=== PATIENT | female | born 1985 | race Caucasian/White ===

== ENCOUNTER 2024-01-22 08:54 | Emergency (ER) | payer OTHER, SELFPAY ==
[2024-01-22 08:57] VITALS: BP 155/88; PULSE 80; RESP 20; TEMP 36.6; O2SAT 97; BMI 43.9
--- NOTE | 2024-01-22 09:14 | ED.GENADULT ---
HPI - General Adult General Chief complaint: Back Injury/Pain Stated complaint: low back pain Time Seen by Provider: 01/22/24 09:05 History of Present Illness HPI narrative: This 38-year-old female comes in reporting bilateral low back pain without midline tenderness. She does not report any injury event or strenuous activity. 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 She has been taking this with Tylenol and ibuprofen with some initial relief but now reports persistent discomfort the does not radiate down either leg. She also has some nausea symptoms at times. She states that she measured a temperature yesterday at 100.9? F. She arrives here with normal vital signs. She does not describe any abdominal pain or dysuria symptoms. Related Data Home Medications ?Medication ?Instructions ?Recorded ?Confirmed amlodipine 10 mg tablet 10 mg PO DAILY 01/22/24 01/22/24 bupropion HCl 300 mg 24 hr tablet, 300 mg PO DAILY 01/22/24 01/22/24 extended release chlorthalidone 25 mg tablet 12.5 mg PO DAILY 01/22/24 01/22/24 cyclobenzaprine 5 mg tablet 5 - 10 mg PO 3XD PRN 01/22/24 01/22/24 fluoxetine 20 mg capsule 20 mg PO DAILY 01/22/24 01/22/24 hydroxyzine pamoate 50 mg capsule 50 mg PO 3XD PRN anxiety 01/22/24 01/22/24 labetalol 300 mg tablet 300 mg PO BID 01/22/24 01/22/24 losartan 100 mg tablet 100 mg DAILY 01/22/24 metformin 500 mg tablet,extended 1,000 mg PO BID 01/22/24 01/22/24 release 24 hr venlafaxine 75 mg capsule,extended 75 mg PO DAILY 01/22/24 01/22/24 release 24 hr Previous Rx's ?Medication ?Instructions ?Recorded ketorolac 10 mg tablet 10 mg PO Q8H 5 days #15 tabs 01/22/24 methylprednisolone 4 mg tablets in See Rx Instructions PO .COMPLEX 01/22/24 a dose pack (Medrol (Rahat)) #21 ea Allergies Allergy/AdvReac Type Severity Reaction Status Date / Time morphine Allergy Intermediate Hives Verified 01/22/24 09:00 lisinopril AdvReac Mild Cough Verified 01/22/24 09:00 Review of Systems Status of ROS: Reports: 10 or more systems reviewed and unremarkable except as noted in History and below Narrative: Constitutional: No fevers, no weight gain or loss. Eyes: No discharge. No vision changes. HENT: No congestion, no sore throat, no ear pain. Cardiovascular: No chest pain, no palpitations. Respiratory: No shortness of breath, no wheezes, no cough. Gastrointestinal: No abdominal pain, no vomiting, no diarrhea. Genitourinary: No dysuria, no hematuria. Musculoskeletal: Normal range of motion. Low back pain as described above. Skin: No rashes, no pruritis. Neurological: No dizziness, weakness, sensory change, speech change. Endo/Heme/Allergies: No bruising or bleeding. No polydipsia. Pysch: no suicidality, no anxiety, no insomnia. All other systems reviewed and are negative. [facility] Medical History (Updated 01/22/24 @ 10:50 by Bo Warren MD) Ectopic without intrauterine ?O00.90 - Unspecified ectopic without intrauterine (ICD-10) Surgical History (Updated 09/12/23 @ 15:50 by Marni Hardin) History of cholecystectomy (2011) ?Z90.49 - Acquired absence of other specified parts of digestive tract (ICD-10) History of exploratory laparotomy (03/2015) ?Z98.890 - Other specified postprocedural states (ICD-10) Family History (Updated 09/12/23 @ 15:53 by Marni Hardin) Father High cholesterol High blood pressure Depression Alcohol dependence Mother High cholesterol High blood pressure Depression Paternal Grandmother Breast cancer Exam Narrative: Exam Narrative: Constitutional: Well-developed, well-nourished, no acute distress. HEENT: Normocephalic, atraumatic. Neck: Normal range of motion. Nontender. Supple. Heart: Regular. No murmurs. Normal rate. Intact distal pulses. Lungs: Clear to auscultation. No chest discomfort. No wheezes, rhonchi, or rales. Abdomen: Normal bowel sounds. Nontender. No rebound tenderness. Genitalia: Deferred. Back: No midline tenderness. Normal range of motion. No pain radiating down either leg. Extremities: Normal range of motion. No injury. Skin: Intact. No rash. Warm. No erythema or pallor. Neurologic: No altered sensation. No weakness. Alert and oriented. Psychiatric: No suicidality. No anxiety or depression. No insomnia. Nursing notes and vitals signs are reviewed. Const: Vital Signs, click to edit/add: Vital Signs - 24 hr 01/22/24 08:57 Temperature 98 F Pulse Rate [Pulse Oximeter] 80 Respiratory Rate 20 Blood Pressure [Ri ght Upper Arm] 155/88 H Pulse Oximetry 97 Oxygen Delivery Me thod Room Air Course Vital Signs Vital signs: Initial Vital Signs Temperature 98 F 01/22/24 08:57 Temperature Source Oral 01/22/24 08:57 Pulse Rate 80 01/22/24 08:57 Pulse Rhythm Regular 01/22/24 08:57 Respiratory Rate 20 01/22/24 08:57 Blood Pressure 155/88 H 01/22/24 08:57 Blood Pressure Mean 110 H 01/22/24 08:57 Blood Pressure Position Sitting 01/22/24 08:57 Pulse Oximetry 97 01/22/24 08:57 Oxygen Delivery Method Room Air 01/22/24 08:57 Vital Signs Temperature 98 F 01/22/24 08:57 Pulse Rate 80 01/22/24 08:57 Respiratory Rate 20 01/22/24 08:57 Blood Pressure 155/88 H 01/22/24 08:57 Pulse Oximetry 97 01/22/24 08:57 Oxygen Delivery Method Room Air 01/22/24 08:57 Temperature 98 F 01/22/24 08:57 Pulse Rate 80 01/22/24 08:57 Respiratory Rate 20 01/22/24 08:57 Blood Pressure 155/88 H 01/22/24 08:57 Pulse Oximetry 97 01/22/24 08:57 Oxygen Delivery Method Room Air 01/22/24 08:57 Medical Decision Making MDM Narrative Medical decision making narrative: This patient reports some low back pain that appears to be muscular in nature. She does not report any particular injury event or strenuous activity. The pain does not radiate down her leg. A urinalysis is obtained and shows no sign of infection however there is 2+ protein present. I advised her to follow-up with her primary doctor to recheck this in the future. Blood is also obtained and her kidney function is normal as is her white count. These are reassuring findings. Most likely this is a muscle strain causing her symptoms. She did received prescription for Toradol and Medrol Dosepak. Lab Data Labs: Lab Results 01/22/24 01/22/24 Range/Units 09:15 10:10 WBC 10.85 (4.50-11.00) K/uL RBC 4.69 (4.00-5.20) m/uL Hgb 14.6 (12.0-16.0) gm/dL Hct 41.7 (33.0-51.0) % MCV 89 (80-100) fL MCH 31 (26-34) pg MCHC 35 (32-36) gm/dL RDW Coeff of Aneudy 12.6 (11.5-15.5) % Plt Count 280 (140-440) K/uL Neut % (Auto) 76.2 H (42.0-72.0) % Lymph % (Auto) 16.0 L (20-44) % [place] % (Auto) 5.4 (0.0-11.0) % Eos % (Auto) 1.8 (0.0-7.0) % Baso % (Auto) 0.4 (0.0-3.0) % Neut # (Auto) 8.30 H (1.7-7.0) K/uL Lymph # (Auto) 1.70 (0.90-2.90) K/uL [place] # (Auto) 0.60 (0.00-0.90) K/UL Eos # (Auto) 0.20 (0.00-0.50) K/uL Baso # (Auto) 0.04 (0.00-0.30) K/uL Abs Immat Gran (auto) 0.02 (0.00-0.30) K/uL Imm/Tot Granulo (auto) 0.2 % Sodium 139 (135-149) mmol/L Potassium 3.3 L (3.6-5.1) mmol/L Chloride 102 (96-114) mmol/L Carbon Dioxide 27 (20-32) mmol/L Anion Gap 10 (7-15) mEq/L BUN 11 (5-24) mg/dL Creatinine 0.7 (0.5-1.5) mg/dL Estimated Creat Clear 118.99 Estimated GFR 114 ml/min Glucose 120 H (60-115) mg/dL Calcium 9.5 (8.4-10.6) mg/dL Urine Color Yellow (Yellow) Urine Appearance Clear (Clear) Urine pH 7.5 (5.0-8.5) Ur Specific [place] 1.025 (1.000-1.030) Urine Protein 2+ A (Negative) Urine Glucose (UA) Negative (Negative) Urine Ketones Trace A (Negative) Urine Blood Trace-intact A (Negative) Urine Nitrite Negative (Negative) Urine Bilirubin Negative (Negative) Urine Urobilinogen 0.2 (0.2-1.0) Ur Leukocyte Esterase Negative (Negative) Urine RBC 2-5 A (0-2) Urine WBC 0-2 (0-5) Ur Squamous Epith Cells Moderate A (None-Few) Urine Bacteria Moderate A (None) Discharge Plan Discharge Clinical Impression: Low back pain Patient Disposition: Home, Self-Care Condition: Stable Additional Instructions: Take medication as prescribed and needed. Activity as tolerated. Gentle stretching and strengthening is encouraged as tolerated also. Follow up with MD or return if worsening. Prescriptions: New ketorolac 10 mg tablet 10 mg PO Q8H 5 Days Qty: 15 0RF methylprednisolone [Medrol (Rahat)] 4 mg tablets,dose pack See Rx Instructions .ROUTE .COMPLEX Qty: 21 0RF Rx Instructions: orally per package directions No Action venlafaxine 75 mg capsule,extended release 24hr 75 mg PO DAILY hydroxyzine pamoate 50 mg capsule 50 mg PO 3XD PRN (Reason: anxiety) chlorthalidone 25 mg tablet 12.5 mg PO DAILY amlodipine 10 mg tablet 10 mg PO DAILY labetalol 300 mg tablet 300 mg PO BID losartan 100 mg tablet 100 mg DAILY fluoxetine 20 mg capsule 20 mg PO DAILY metformin 500 mg tablet extended release 24 hr 1,000 mg PO BID cyclobenzaprine 5 mg tablet 5 - 10 mg PO 3XD PRN bupropion HCl 300 mg tablet extended release 24 hr 300 mg PO DAILY Follow Up/Referrals: Provider,Not a Local [Primary Care Provider] - Stand Alone Forms: [employer] Info Instructions
[2024-01-22 09:25] LABS: Appearance Urine Clear (Clear); Bilirubin Urine Negative (Negative); Blood Urine Trace-intact (Negative); Color Urine Yellow (Yellow); Glucose Urine Negative (Negative); Ketones Urine Trace (Negative); Leukocyte Esterase Urine Negative (Negative); Nitrite Urine Negative (Negative); Protein Urine 2+ (Negative); Specific Gravity Urine 1.025 (1.000-1.030); Urobilinogen Urine 0.2 (0.2-1.0); pH Urine 7.5 (5.0-8.5)
--- OUTSIDE RECORDS SUMMARY | 2024-01-22 09:28 | XMS_ITS | Clinical Summary ---
Author Organization [employer] [facility] Address [place], [place] [address] Care Team Providers Care Master Machinist Name Role Phone Clinic, [facility] Primary Care Provider [phone] Allergies Active Allergy Reactions Criticality Noted Date Comments Morphine Hives,Nausea And Vomiting 12/17/2009 Medications Medication Sig Dispensed Refills Start Date End Date Status Omeprazole 20 mg tablet Take 1 tablet by mouth once daily. 90 tablet 4 12/22/2011 Active INTRAUTERINE DEVICE (IUD) 1 Device. 1 Device 0 12/22/2011 Active omega-3 fatty acids-vitamin E (FISH OIL) 1,000 mg Cap Take by mouth. 0 12/29/2011 Active niacin SR (NIASPAN) 500 mg tablet Take 3 tablets by mouth at bedtime. 90 tablet 1 12/29/2011 Active methyldopa (ALDOMET) 500 mg tablet Take 1 tablet by mouth 2 times daily. 180 tablet 1 08/10/2012 Active atomoxetine (STRATTERA) 40 mg capsule Take 1 capsule by mouth once daily. 90 capsule 1 08/10/2012 Active Active Problems Problem Noted Date Diagnosed Date Migraines 08/20/2010 Hypertriglyceridemia 01/07/2010 ADHD (attention deficit hyperactivity disorder) 01/05/2010 Hypertension 01/05/2010 GERD (gastroesophageal reflux disease) Immunizations Name Administration Dates Next Due Influenza, High-dose Inactivated 04/26/2014 Influenza, IIV3 (Age >=3 years) 06/05/2012,04/22 Influenza, IIV4 05/01/2015 Tdap 01/13/2009 Family History Medical History Relation Name Comments Alcohol/Drug Father alcoholism Hyperlipidemia Father dyslipidemia Hypertension Father Psychiatric illness Father bipolar, depression Heart Disease Maternal Grandfather heart attack, in his 60's Hyperlipidemia Mother dyslipidemia Hypertension Mother Psychiatric illness Mother depressi on Alcohol/Drug Paternal Grandfather alcohol ic Heart Disease Paternal Grandfather heart attack, in his 50's Cancer-breast Paternal Grandmother 50s Hyperlipidemia Paternal Grandmother Hypertension Paternal Grandmother Alcohol/Drug Paternal Uncle couple of [facility] were alcoholics Psychiatric illness Sister depressi on, anxiety Relation Name Status Comments Father Maternal Grandfather Mother Paternal Grandfather Paternal Grandmother Paternal Uncle Sister Social History Tobacco Use Types Packs/Day Years Used Date Smoking Tobacco: Every Day Cigarettes Smokeless Tobacco: Never Tobacco Cessation:Ready to Q uit: No; Counseling Given: No Alcohol Use Standard Drinks/Week Comments Yes 0 (1 standard drink = 0.6 oz pur e alcohol) Rare/ocasional Sex and Gender Information Value Date Recorded Sex Assigned at Not on file Gender Identity Not on file Sexual Orientation Not on file Obstetrics History Para Term AB IAB SAB Ectopic Multiple Livin g Live Births 0 0 0 0 0 0 0 0 0 0 Last Filed Vital Signs Vital Sign Reading Time Taken Comments Blood Pressure 137/96 10/22/2013 9:09 PM CDT Pulse 95 10/22/2013 9:09 PM CDT Temperature 36.2 ??C (97.2 ??F) 10/22/2013 7:13 PM CD T Respiratory Rate 18 10/22/2013 9:09 PM CDT Oxygen Saturation 95% 10/22/2013 9:09 PM CDT Inhaled Oxygen Concentration - - Weight 122.9 kg (271 lb) 08/10/2012 1:40 PM [employer] Height 179.7 cm (5' 10.75) 07/03/2012 11:39 AM [employer] Body Mass Index 38.06 07/03/2012 11:39 AM [employer] Plan of Treatment Health Maintenance Due Date Last Done Comments Depression screening for age 12+ 1998 HIV for age 15-65 2001 BMI (ht and wt on same day) for age 18+ 2004 Hepatitis C screening for age 18-79 2004 Tetanus booster 01/13/2019 01/13/2009 Pap test for age 21-65 02/14/2021 8, 02/14/2018, 12/22/2011 (Completed outside of [facility]), Additional history exists COVID-19 vaccine series (2022-24 season) 2023 Influenza for age 9-49 02/25/2024 5, 06/05/2012, 04/22/2011 Tdap Completed 01/13/2009 Pneumococcal series for age 6-64 Aged Out No longer eligible based on patient's age to complete this topic Procedures Procedure Name Priority Date/Time Associated Diagnosis Comments RN INTERNAL MEDICINE THIN PREP PAP SCREEN IMAGED Routine 02/14/2018 1:25 PM CDT from Last 3 Months or Most Recently Relevant to Health Maintenance Results * RN INTERNAL MEDICINE THIN PREP PAP SCREEN IMAGED (02/14/2018 1:25 PM CDT) Case Report Gynecologic Cytology Report ? Case: [id number] ? Authorizing Provider: ??Faiza Zavaleta ?Collected: ? 02/14/2018 1325 ? MD Caroline ? First Screen: ?Carmen Reyna ?Received: ?02/16/2018 1325 ? Specimen: ?RN INTERNAL MEDICINE ThinPrep Vial Screening, Cervical/Vaginal ? 02/28/2018 10:14 AM CDT [facility]AL [facility] INTERPRETATION/ RESULT NEGATIVE FOR INTRAEPITHELIAL LESION OR MALIGNANCY (NIL) (none) 02/28/2018 10:14 AM CDT [facility] IMEN ADEQUACY Satisfactory for evaluation No endocervical component seen 02/28/2018 10:14 AM CDT [facility] HPV REQUEST HPV and PAP 02/28/2018 10:14 AM CDT [facility] Date of LMP 02/11/2018 02/28/2018 10:14 AM CDT [facility] Automated Review Successful 02/28/2018 10:14 AM CDT [facility] Comment:Specimen processed s uccessfully by automated casino attendant device, ThinPrep Imaging System, [employer] ANCILLARY TESTING RN INTERNAL MEDICINE HPV Ordered, Please see separate report 02/28/2018 10:14 AM CDT [facility] Note The pap test is a screening technique, not a diagnostic procedure. ??It is used primarily to screen for squamous cancers and precursor lesions. ??Published studies have shown that it is subject to both false negative and false positive results. ??The pap test should not be used as the sole means to diagnose or exclude pre-malignant and malignant lesions. Cytology is screened and interpreted at [facility] - [address], [place] [address] and [facility] - [address]; [place] [address] and [facility] - [address]; [place] [address] and [facility] [address]; [place] [address] 02/28/2018 10:14 AM CDT [facility] Other (Cervical/Vagina l) 02/14/2018 1:25 PM CDT 02/16/2018 1:25 PM CDT Faiza Zavaltea MD PATHOLOGY/ CYTOLOGY [facility] [address] [place] [address], [place] from Last 3 Months or Most Recently Relevant to Health Maintenance Care Teams Master Machinist Relationship Specialty Start Date End Date [facility], [address] [id number] PCP - General 10/22/13
--- OUTSIDE RECORDS SUMMARY | 2024-01-22 09:29 | XMS_ITS | Clinical Summary ---
Author Organization [facility] Address [address] [place] [address] Care Team Providers Care Farmworker [employer] Name Role Phone Louie Meadows MD Primary Care Provider [phone] [phone] [facility], [facility] Unavailable [phone] [phone] Allergies Active Allergy Reactions Criticality Noted Date Comments Lisinopril Cough 07/12/2013 Morphine Nausea and Vomiting,Itching 10/12/19 05 Medications Medication Sig Dispensed Refills Start Date End Date Status Magnesium Glycinate 665 MG CAPS Take 500 mg by mouth daily 12/24/2021 Active omeprazole (PRILOSEC) [address] capsule Take 1 capsule (20 mg) by mouth daily 12/24/2021 Active Cholecalciferol-Shayy min C (VITAMIN D3-VITAMIN C) 1000-500 UNIT-MG CAPS Take 2 capsules by mouth daily 12/24/2021 Active rizatriptan (MAXALT) 5 MG tabletIndications:Mi graine with aura and without status migrainosus, not intractable Take 1 tablet (5 mg) by mouth at onset of headache for migraine May repeat in 2 hours. Max 6 tablets/24 hours. 6 tablet 1 12/24/2021 Active doxycycline hyclate (VIBRA-TABS) 100 MG tablet Take 1 tablet by mouth 2 times daily 07/19/2022 Active chlorthalidone (HYGROTON) 25 MG tabletIndications:Be nign essential hypertension Take 0.5 tablets (12.5 mg) by mouth daily 45 tablet 3 10/31/2022 Active amLODIPine (NORVASC) 10 MG tabletIndications:Be nign essential hypertension Take 1 tablet (10 mg) by mouth daily 90 tablet 1 05/03/2023 Active buPROPion (WELLBUTRIN XL) 300 MG 24 hr tabletIndications:Ge neralized anxiety disorder Take 1 tablet (300 mg) by mouth every morning 90 tablet 1 05/03/2023 Active hydrOXYzine (VISTARIL) 50 MG capsuleIndications:G eneralized anxiety disorder Take 1 capsule (50 mg) by mouth 3 times daily as needed for anxiety 270 capsule 1 05/03/2023 Active labetalol (NORMODYNE) 300 MG tabletIndications:Be nign essential hypertension Take 1 tablet (300 mg) by mouth 2 times daily 180 tablet 1 05/03/2023 Active losartan (COZAAR) 100 MG tabletIndications:Be nign essential hypertension Take 1 tablet (100 mg) by mouth daily 90 tablet 1 05/03/2023 Active metFORMIN (GLUCOPHAGE XR) 500 MG 24 hr tabletIndications:PC OS (polycystic ovarian syndrome) Take 1 tablet (500 mg) by mouth 2 times daily (with meals) 180 tablet 1 05/03/2023 Active venlafaxine (EFFEXOR-ER) 225 MG 24 hr tabletIndications:Ge neralized anxiety disorder Take 1 tablet (225 mg) by mouth daily 90 tablet 1 05/03/2023 Active Active Problems Problem Noted Date Diagnosed Date Mixed hyperlipidemia 01/27/2022 Elevated fasting glucose 01/27/2022 PCOS (polycystic ovarian syndrome) 01/20/2022 Former smoker 12/24/2021 Morbid obesity 12/24/2021 Chronic GERD 12/24/2021 Migraine with aura and witho ut status migrainosus, not intractable 01/07/2015 Generalized anxiety disorder 07/12/2013 ACP (advance care planning) 12/21/2012 Benign essential hypertension 12/21/2012 Recurrent major depressive d isorder, in partial remission (H24) 12/21/2012 Hypercholesterolemia 11/29/2012 Resolved Problems Problem Noted Date Diagnosed Date Resolved Date Health Detention 12/24/2021 12/11/2023 Ectopic 10/23/2013 12/24/2021 CARDIOVASCULAR SCREENING; LD L GOAL LESS THAN 130 07/12/2013 12/24/2021 Obesity 12/21/2012 01/20/2022 Tobacco abuse 12/21/2012 12/24/2021 Sprain of back 03/23/2005 07/12/2013 Overview: Problem list name updated by automated process. Provider to review Acute bronchitis 03/16/2005 07/12/2013 Encounters Date Type Department Care Team Description 11/30/2023 Refill [facility] [address] [phone] Louie Meadows MD Medication Refill 11/01/2023 MyC Medical Advice [facility] [address] [phone] Jolene Grimes CMA Refill Request (Fluoxetine, Venlafaxine/) 10/31/2023 Refill [facility] [address] [place] [phone] Louie Meadows MD Medication Refill from Last 3 Months Immunizations Name Administration Dates Next Due Influenza (IIV3) PF 04/11/2013 Influenza Vaccine >6 months,quad, PF ,05/14/2021,04/29/2020, 019 Nasal Influenza Vaccine 2-49 (FluMist) 05/18/2014 TDAP (Adacel,Boostrix) 02/14/2018,01/13/2009 Family History Medical History Relation Comments Attention Deficit Disorder Brother Depression Brother Other - See Comments Brother motocycle a ccident. Alcoholism Father Arthritis Father Hypertension Father Psychotic Disorder Father Bipolar disor topher Alcoholism Maternal Grandfather Hypertension Maternal Grandmother Anxiety Disorder Mother Depression Mother Hypertension Mother Coronary Artery Disease Paternal Grandfather Alcoholism Paternal Grandmother Breast Cancer Paternal Grandmother Coronary Artery Disease Paternal Grandmother Depression Paternal Grandmother Anxiety Disorder Sister Depression Sister Migraines Sister Polycystic ovary syndrome Sister Relation Status Comments Brother Father Alive Maternal Grandfather Maternal Grandmother Alive Mother Alive Paternal Grandfather Paternal Grandmother Sister Alive Social History Tobacco Use Types Packs/Day Years Used Date Smoking Tobacco: Former Cigarettes 0.5 9 0 12/24/2006 - 12/25/2015 Smokeless Tobacco: Never Comments:less than 1/2 PPD Alcohol Use Standard Drinks/Week Comments Yes 0 (1 standard drink = 0.6 oz pur e alcohol) 1-2 a month PHQ-2 Answer Date Recorded PHQ-2 Score 1 05/03/2023 Adolescent Education Answer Date Record ed Getting School Help Needed Not on file 04/11 Sex and Gender Information Value Date Recorded Sex Assigned at Female 12/24/2021 11:20 AM CDT Gender Identity Female 12/24/2021 11:20 AM CDT Sexual Orientation Straight 12/24/2021 11 :20 AM CDT Last Filed Vital Signs Vital Sign Reading Time Taken Comments Blood Pressure 142/82 05/03/2023 12:29 PM BEADING INSTALLER Pulse 85 05/03/2023 12:29 PM BEADING INSTALLER Temperature 36.7 ??C (98 ??F) 05/03/2023 12:29 PM BEADING INSTALLER Respiratory Rate 20 05/03/2023 12:29 PM BEADING INSTALLER Oxygen Saturation 94% 05/03/2023 12:29 PM BEADING INSTALLER Inhaled Oxygen Concentration - - Weight 136.5 kg (301 lb) 05/03/2023 12:29 PM BEADING INSTALLER Height 180.3 cm (5' 11) 05/13/2022 12:40 PM BEADING INSTALLER Body Mass Index 41.98 05/13/2022 12:40 PM BEADING INSTALLER Plan of Treatment Health Maintenance Due Date Last Done Comments ANNUAL REVIEW OF HM ORDERS 1986 MIGRAINE ACTION PLAN 1986 HIV SCREENING 2001 HEPATITIS C SCREENING 2004 YEARLY PREVENTIVE VISIT 12/20/2015 12/20/19 15, 11/29/2012, 01/12/2005, Additional history exists PAP 02/14/2021 02/14/2018, 01/25, 12/19/2014, Additional history exists LIPID 01/20/2023 01/20/2022, 11/25, 12/07/2012 COVID-19 Vaccine ( season) 2023 06/10/2021, 08/12/2020, 07/15/2020 PHQ-9 11/01/2023 05/03/2023, 04/26, 03/25/2022, Additional history exists ADVANCE CARE PLANNING 01/21/2024 12/21/2012 Postpo radha from 12/21/2017 (Patient Declined) INFLUENZA VACCINE (#1) 2024 , 05/14/2021, 04/29/2020, Additional history exists HEPATITIS B IMMUNIZATION (1 of 3 - 19+ 3-dose series) 06/14/2025 Postponed from 2005 (Other) GLUCOSE 07/22/2025 07/22/2022, 05/27, 03/25/2022, Additional history exists DTAP/TDAP/TD IMMUNIZATION (3 - Td or Tdap) 02/15/2028 02/14/2018, 01/13/2009 DEPRESSION ACTION PLAN Completed 01/20/2022, 2021 HPV IMMUNIZATION Aged Out No longer e ligible based on patient's age to complete this topic IPV IMMUNIZATION Aged Out No longer e ligible based on patient's age to complete this topic MENINGITIS IMMUNIZATION Aged Out No l onger eligible based on patient's age to complete this topic Pneumococcal Vaccine: Pediatrics (0 to 5 Years) and At-Risk Patients (6 to 64 Years) Aged Out No longer eligible based on patient's age to complete this topic RSV MONOCLONAL ANTIBODY Aged Out No l onger eligible based on patient's age to complete this topic Procedures Procedure Name Priority Date/Time Associated Diagnosis Comments BASIC METABOLIC PANEL (BFP) Routine 07/22/2022 Benign essential hypertension LIPID PANEL (BFP) Routine 01/20/2022 Morbid obesity (H) PAP IMAGED THIN LAYER SCREEN Routine 12/19/2014 12:00 AM CDT Routine general medical examination at a health care facility from Last 3 Months or Most Recently Relevant to Health Maintenance Results * Basic Metabolic Panel (BFP) (07/22/2022) Carbon Dioxide 31.0 20 - 32 mmol/L BFP INTERNAL Creatinine 0.98 0.60 - 1.30 mg/dL BFP INTERNAL Glucose 88 60 - 99 mg/dL BFP INTERNAL Sodium 138.3 135 - 146 mmol/L BFP INTERNAL Potassium 5.18 3.5 - 5.3 mmol/L BFP INTERNAL Chloride 98.8 98 - 110 mmol/L BFP INTERNAL Urea Nitrogen 17.0 7 - 25 mg/dL BFP INTERNAL Calcium 10.0 8.6 - 10.3 mg/dL BFP INTERNAL BUN/Creatinine Ratio 17.3 6 - 22 BFP INTERNAL Blood 07/22/2022 Louie Meadows MD LAB - NON-SmartPill BLOOD LABS BFP INTERNAL * (ABNORMAL) Lipid Panel (BFP) (01/20/2022) Cholesterol 210(A) 0 - 199 mg/dL BFP INTERNAL Triglycerides 345(A) 0 - 149 mg/dL BFP INTERNAL HDL Cholesterol 35(A) 40 - 150 mg/dL BFP INTERNAL LDL Cholesterol Direct 106 0 - 130 mg/dL BFP INTERNAL Cholesterol/HDL Ratio 6(A) 0 - 5 BFP INTERNAL Blood 01/20/2022 Ana Lilia Delgado PA-C LAB - NON -Quickflix BLOOD LABS BFP INTERNAL * PAP imaged thin layer, screen (12/19/2014 12:00 AM CDT) PAP MARGIE Joshi Report Patient Name: DANII PRAKASH MR#: [id number] Specimen #: [id number] Collected: 12/19/2014 Received: 12/22/2014 Reported: 12/23/2014 10:07 Ordering Phy(s): CORTNEY GARRETT SPECIMEN/STAIN PROCESS: Pap imaged thin layer prep screening (Surepath, FocalPoint with guided screening) ? Pap-Cyto x 1 SOURCE: Cervical, endocervical Pap imaged thin layer prep screening (Surepath, FocalPoint with guided screening) SPECIMEN ADEQUACY: Satisfactory for evaluation. -Transformation zone component present. CYTOLOGIC INTERPRETATION: Negative for Intraepithelial Lesion or Malignancy Electronically signed out by: JESSICA Olsen (ASCP) Processed and screened at [facility] CLINICAL HISTORY: LMP: 11/21/2014 Previous normal pap Date of Last Pap: 01/12/2005, Papanicolaou Test Limitations: ??Cervical cytology is a screening test with limited sensitivity; regular screening is critical for cancer prevention; Pap tests are primarily effective for the diagnosis/preventi on of squamous cell carcinoma, not adenocarcinomas or other cancers. TESTING LAB LOCATION: [facility] [address] [place], [place] ??[phone] COLLECTION SITE: Client: ??[facility] Location: RIIM (R) COPATH Cytologic material (specimen) 12/19/2014 12/22/2014 11:09 AM CDT Cortney Garrett MD LAB - OPTIME CLINICAL SPECIMEN COPATH from Last 3 Months or Most Recently Relevant to Health Maintenance Advance Directives For more information, please contact: [phone] * DNI (Latest Code Status on File) Date Activated Date Inactivated Comments 10/26/2013 2:50 AM 10/26/2013 3:45 PM * Full Code Date Activated Date Inactivated Comments 10/23/2013 12:32 AM 10/23/2013 11:55 AM * No Code Status Date Activated Date Inactivated Comments 03/30/2004 12:37 PM 03/30/2004 12:37 PM Care Teams Farmworker [employer] Relationship Specialty Start Date End Date Louie Meadows MD [address] [place] [address] PCP - General Family Medicine 07/21/22 Physicians, [place] [address] Cortney Lomeli [facility] [address] [place] [phone] Assigned PCP 01/16/24
--- OUTSIDE RECORDS SUMMARY | 2024-01-22 09:29 | XMS_ITS | Encounter Summary ---
Author Organization [facility] Address [address] [place] [address] Care Team Providers Care Orthodontic Technician Assistant Name Role Phone Louie Meadows MD Primary Care Provider [phone] Physicians, [facility] Unavailable [phone] Ana Lilia Delgado PA-C Unavailable Physicians, [facility] Unavailable Reason for Visit * Reason Onset Date Comments Medication Question 08/19/2022 Hypertension 08/19/2022 Encounter Details Date Type Department Care Team (Latest Contact Info) Description 08/19/2022 MyC Medical Advice [facility] [address] [phone] Louie Meadows MD [address] [address] Medication Question; Hypertension Social History Tobacco Use Types Packs/Day Years Used Date Smoking Tobacco: Former Cigarettes 0.5 9 0 12/24/2006 - 12/25/2015 Smokeless Tobacco: Never Comments:less than 1/2 PPD Alcohol Use Standard Drinks/Week Comments Yes 0 (1 standard drink = 0.6 oz pur e alcohol) 1-2 a month PHQ-2 Answer Date Recorded PHQ-2 Score 1 05/13/2022 Sex and Gender Information Value Date Recorded Sex Assigned at Female 12/24/2021 11:20 AM CDT Gender Identity Female 12/24/2021 11:20 AM CDT Sexual Orientation Straight 12/24/2021 11 :20 AM CDT COVID-19 Exposure Response Date Recorded In the last 10 days, have yo u been in contact with someone who was confirmed or suspected to have Coronavirus/COVID-19? No / Unsure 07/22/2022 11:55 AM RESIDENTIAL TREATMENT STAFF documented as of this encounter Plan of Treatment Not on file documented as of this encounter Visit Diagnoses Diagnosis Benign essential hypertension- Primary Essential hypertension, benign documented in this encounter Additional Health Concerns Assessment Noted Time PHQ-9 Depression Total Score: 5 05/13/20 22 1:03 PM RESIDENTIAL TREATMENT STAFF documented as of this encounter Care Teams Orthodontic Technician Assistant Relationship Specialty Start Date End Date Louie Meadows MD [address] [place] [address] PCP - General Family Medicine 07/21/22 Physicians, [place] [address] [address] [facility] [address] [place] [phone] Assigned PCP 07/20/23 12/16/23 Ana Lilia Delgado PA-C [facility] [address] [place], [place] [address] Assigned PCP 12/17/23 01/15/24 Physicians, [place] [address] [address] [facility] [address] [place] [phone] Assigned PCP 01/16/24 documented as of this encounter
--- OUTSIDE RECORDS SUMMARY | 2024-01-22 09:29 | XMS_ITS | Encounter Summary ---
Author Organization [facility] Address [address] [place] [address] Care Team Providers Care Software Support Technician Name Role Phone Carmen Neil DO Primary Care Provider [phone] Cortney Mancuso MD Primary Care Provid er None Primary Care Provider Unavailabl Louie Hung MD Primary Care Provider Unav ailable Ana Lilia Delgado PA-C Primary Care Pro vider Ana Lilia Delgado PA-C Unavailable Louie Meadows MD Primary Care Provider [phone] -[phone] Physicians, [facility] Unavailable [phone] -[phone] Ana Lilia Delgado PA-C Unavailable Physicians, [facility] Unavailable [phone] -[phone] Reason for Visit * Reason Onset Date Comments MyChart Communication 01/07/2014 Encounter Details Date Type Department Care Team (Late st Contact Info) Description 01/07/2014 MyC Medical Advice [address] [phone] Carmen Neil DO [address] [facility] [address] [place] [address] MyChart Communication Social History Tobacco Use Types Packs/Day Years Used Date Smoking Tobacco: Every Day Cigarettes Smokeless Tobacco: Never Comments:less than 1/2 PPD Alcohol Use Standard Drinks/Week Comments Yes 0 (1 standard drink = 0.6 oz pur e alcohol) social Sex and Gender Information Value Date Recorded Sex Assigned at Female 12/24/2021 11:20 AM CDT Gender Identity Female 12/24/2021 11:20 AM CDT Sexual Orientation Straight 12/24/2021 11 :20 AM CDT documented as of this encounter Miscellaneous Notes * Telephone Encounter - Camelia Pratt RN - 01/08/2014 3:24 PM CDT Please see [employer] message and respond. Camelia Pratt RN documented in this encounter Plan of Treatment Not on file documented as of this encounter Visit Diagnoses Not on filedocumented in this encounter Care Teams Software Support Technician Relationship Specialty Start Date End Date Carmen Neil DO PCP - General demolition worker 11/28/12 12/18/14 Cortney Mancuso MD [address] [place] [address] PCP - General Internal Medicine 12/19/14 12/21/14 None PCP - General 12/22/14 04/14/15 Louie Camacho MD PCP - General demolition worker 04/15/15 12/23/21 Ana Lilia Delgado PA-C PCP - General Family Medicine 12/24/21 07/20/22 Louie Meadows MD [address] [place] [address] PCP - General Family Medicine 07/21/22 Ana Lilia Delgado PA-C [facility] [address] [place] [address] Assigned PCP 01/01/22 08/05/22 Physicians, [place] [address] [facility] [address] [place] [phone] Assigned PCP 07/20/23 12/16/23 Ana Lilia Delgado PA-C [facility] [address] [place] [address] Assigned PCP 12/17/23 01/15/24 Physicians, [place] [address] [facility] [address] [place] [phone] Assigned PCP 01/16/24 documented as of this encounter
--- OUTSIDE RECORDS SUMMARY | 2024-01-22 09:29 | XMS_ITS | Encounter Summary ---
Author Organization [facility] Address [address] [place] [address] Care Team Providers Care Field Spec Name Role Phone Ana Lilia Delgado PA-C Unavailable Louie Meadows MD Primary Care Provider [phone] [facility] [phone] [phone] Ana Lilia Delgado PA-C Unavailable Physicians, [facility] Unavailable Reason for Visit * Reason Onset Date Comments Medication Question 07/28/2022 Encounter Details Date Type Department Care Team ([facility] st Contact Info) Description 07/28/2022 MyC Medical Advice [facility] [address] [phone] Louie Meadows MD [address] [phone] Medication Question Social History Tobacco Use Types Packs/Day Years [...] Coronavirus/COVID-19? No / Unsure 07/22/2022 11:55 AM MANAGER TELEMARKETING documented as of this encounter Plan of Treatment Not on file documented as of this encounter Visit Diagnoses Not on filedocumented in this encounter Additional Health Concerns Assessment Noted Time PHQ-9 Depression Total Score: 5 05/13/20 1:03 PM MANAGER TELEMARKETING documented as of this encounter Care Teams Field Spec Relationship Specialty Start Date End Date Louie Meadows MD [address] [place] [address] PCP - General Family Medicine 07/21/22 Ana Lilia Delgado PA-C [facility] [address], [facility] [address] [place] [address] Assigned PCP 01/01/22 08/05/22 Physicians, [place] [address] [address] [facility] [address] [place] [phone] Assigned PCP 07/20/23 12/16/23 Ana Lilia Delgado PA-C [facility] [address], [facility] [address] [place] [address] Assigned PCP 12/17/23 01/15/24 Physicians, [place] [address] [address] [facility] [address] [place] [phone] Assigned PCP 01/16/24 documented as of this encounter
--- OUTSIDE RECORDS SUMMARY | 2024-01-22 09:29 | XMS_ITS | Encounter Summary ---
Author Organization [facility] Address [address] [place] [address] Care Team Providers Care Director Of Enterprise Strategy Name Role Phone Carmen Neil DO Primary Care Provider [phone] Cortney Mancuso MD Primary Care Provid er None Primary Care Provider Unavailabl Louie Hung MD Primary Care Provider Unav ailable Ana Lilia Delgado PA-C Primary Care Pro vider Ana Lliia Delgado PA-C Unavailable Louie Meadows MD Primary Care Provider [phone] [phone] Physicians, [facility] Unavailable [phone] [phone] Ana Lilia Delgado PA-C Unavailable Physicians, [facility] Unavailable + [phone] Encounter Details Date Type Department Care Team (Late st Contact Info) Description 02/22/2013 MyC Medical Advice [facility] [address] [facility] [address] [place] [address] Lenore Oliver MD [address] [place] [address] Social History Tobacco Use Types Packs/Day Years [...] AM CDT documented as of this encounter Plan of Treatment Not on file documented as of this encounter Visit Diagnoses Not on filedocumented in this encounter Care Teams Director Of Enterprise Strategy Relationship Specialty Start Date End Date Carmen Neil DO PCP - General ball truing machine operator 11/28/12 12/18/14 Cortney Mancuso MD [facility] [place] [address] PCP - General Internal Medicine 12/19/14 12/21/14 None PCP - General 12/22/14 04/14/15 Louie Camacho MD PCP - General ball truing machine operator 04/15/15 12/23/21 Ana Lilia Delgado PA-C PCP - General Family Medicine 12/24/21 07/20/22 Louie Meadows MD [address] [place] [phone] PCP - General Family Medicine 07/21/22 Ana Lilia Delgado PA-C [facility] [address] [place] [address] Assigned PCP 01/01/22 08/05/22 Physicians, [address] [phone] Assigned PCP 07/20/23 12/16/23 Ana Lilia Delgado PA-C [facility] [address], [facility] [address] [place] [address] Assigned PCP 12/17/23 01/15/24 Physicians, [address] [place] [address] Assigned PCP 01/16/24 documented as of this encounter
--- OUTSIDE RECORDS SUMMARY | 2024-01-22 09:29 | XMS_ITS | Referral Summary ---
Author Organization [place] Address [address] [place] [address] Care Team Providers Care Car Rental Agent Name Role Phone Louie Meadows MD Primary Care Provider +1 [phone] Physicians, [place] Family Unavailable [phone] [phone] Encounters Date Type Department Care Team Description 11/30/2023 Refill [facility] [address] [place] [address] [place] [address] [phone] Louie Meadows MD Medication Refill 11/01/2023 MyC Medical Advice [facility] [address] [place] [address] [address] [place] [phone] Jolene Grimes CMA Refill Request (Fluoxetine, Venlafaxine/) 10/31/2023 Refill [facility] [address] [place] [address] [place] [phone] Louie Meadows MD Medication Refill from Last 3 Months Allergies Active Allergy Reactions Criticality Noted Date [...] Noted Date Diagnosed Date Resolved Date Health Chcf 12/24/2021 12/11/2023 Ectopic 10/23/2013 12/24/2021 CARDIOVASCULAR SCREENING; LD L GOAL LESS THAN 130 07/12/2013 12/24/2021 Obesity 12/21/2012 01/20/2022 Tobacco abuse 12/21/2012 12/24/2021 Sprain of back 03/23/2005 07/12/2013 Overview: Problem list name updated by automated process. Provider to review Acute bronchitis 03/16/2005 07/12/2013 Immunizations Name Administration Dates Next Due Influenza (IIV3) PF 04/11/2013 Influenza Vaccine >6 months,quad, PF ,05/14/2021,04/29/2020, 019 Nasal Influenza Vaccine 2-49 (FluMist) 05/18/2014 TDAP (Adacel,Boostrix) 02/14/2018,01/13/2009 Social History Tobacco Use Types Packs/Day Years [...] Comments Blood Pressure 142/82 05/03/2023 12:29 PM HOGSHEAD STOCK CLERK Pulse 85 05/03/2023 12:29 PM HOGSHEAD STOCK CLERK Temperature 36.7 ??C (98 ??F) 05/03/2023 12:29 PM HOGSHEAD STOCK CLERK Respiratory Rate 20 05/03/2023 12:29 PM HOGSHEAD STOCK CLERK Oxygen Saturation 94% 05/03/2023 12:29 PM HOGSHEAD STOCK CLERK Inhaled Oxygen Concentration - - Weight 136.5 kg (301 lb) 05/03/2023 12:29 PM HOGSHEAD STOCK CLERK Height 180.3 cm (5' 11) 05/13/2022 12:40 PM HOGSHEAD STOCK CLERK Body Mass Index 41.98 05/13/2022 12:40 PM HOGSHEAD STOCK CLERK Plan of Treatment Not on file Procedures Procedure Name Priority Date/Time Associated Diagnosis [...] Blood 07/22/2022 Louie Meadows MD LAB - NON-BEAKER BLOOD LABS [facility] * (ABNORMAL) Lipid Panel ([facility]) (01/20/2022) Cholesterol 210(A) 0 - 199 mg/dL [facility] Triglycerides 345(A) 0 - 149 mg/dL [facility] HDL Cholesterol 35(A) 40 - 150 mg/dL [facility] LDL Cholesterol Direct 106 0 - 130 mg/dL [facility] Cholesterol/HDL Ratio 6(A) 0 - 5 [facility] Blood 01/20/2022 Ana Lilia Delgado PA-C LAB - NON -BEAKER BLOOD LABS [facility] * PAP imaged thin layer, screen (12/19/2014 12:00 AM CDT) PAP NIL SHERYL Saucedo Report Patient Name: DANII PRAKASH MR#: [id number] Specimen #: [id number] Collected: 12/19/2014 Received: 12/22/2014 Reported: 12/23/2014 10:07 [...] JESSICA Olsen (ASCP) Processed and screened at [facility], [facility] CLINICAL HISTORY: LMP: 11/21/2014 Previous normal pap Date of Last Pap: 01/12/2005, Papanicolaou Test Limitations: ??Cervical cytology is a screening test with limited sensitivity; regular screening is critical for cancer prevention; Pap tests are primarily effective for the diagnosis/preventi on of squamous cell carcinoma, not adenocarcinomas or other cancers. TESTING LAB LOCATION: [address] ??[address] COLLECTION SITE: Client: ??[facility] Location: ROXANA SAUCEDO (R) Cytologic material (specimen) 12/19/2014 12/22/2014 11:09 AM CDT Cortney Garrett MD LAB - OPTIME CLINICAL SPECIMEN COPATH from Last 3 Months or Most Recently Relevant to Health Maintenance Advance Directives For more information, please contact: [phone] * DNI (Latest Code Status on File) Date Activated Date Inactivated Comments 10/26/2013 2:50 AM 10/26/2013 3:45 PM * Full Code Date Activated Date Inactivated Comments 10/23/2013 12:32 AM 10/23/2013 11:55 AM * No Code Status Date Activated Date Inactivated Comments 03/30/2004 12:37 PM 03/30/2004 12:37 PM Care Teams Car Rental Agent Relationship Specialty Start Date End Date Louie Meadows MD [address] [place] [address] PCP - General Family Medicine 07/21/22 Physicians, [address] [place] [address] Assigned PCP 01/16/24
--- OUTSIDE RECORDS SUMMARY | 2024-01-22 09:29 | XMS_ITS | Encounter Summary ---
Author Organization [place] Address [address] [place] [address] Care Team Providers Care Mixing Technician Name Role Phone Louie Meadows MD Primary Care Provider [phone] [phone] Physicians, [place] Family Unavailable [phone] [phone] Reason for Visit * Reason Comments Medication Refill Encounter Details Date Type Department Care Team ([facility] st Contact Info) Description 11/30/2023 Refill [facility] Physicians [address] [phone] Louie Meadows MD [address] [place] [address] [place] [phone] Medication Refill Social History Tobacco Use Types Packs/Day Years [...] encounter Miscellaneous Notes * Telephone Encounter - Jessi Grimes CMA - 11/30/2023 8:09 AM CDT Stephy R Dwain is requesting a refill of: Refused Prescriptions: Disp Refills chlorthalidone (HYGROTON) 25 MG tablet [Ph* Sig: TAKE 1/2 TABLET BY MOUTH DAILY Refused By: JSESI GRIMES Reason for Refusal: Patient needs appointment Pt due for OV or can get from [facility] at [facility] documented in this encounter Plan of Treatment Not on file documented as of this encounter Visit Diagnoses Diagnosis Benign essential hypertension Essential hypertension, benign documented in this encounter Additional Health Concerns Assessment Noted Time PHQ-9 Depression Total Score: 7 05/03/20 23 1:21 PM MEDICAL RECEPTIONIST MEDICAL ASSISTANT documented as of this encounter Care Teams Mixing Technician Relationship Specialty Start Date End Date Louie Meadows MD [address] [place] [address] PCP - General Family Medicine 07/21/22 Physicians, [address] [place] [phone] Assigned PCP 07/20/23 12/16/23 documented as of this encounter
--- OUTSIDE RECORDS SUMMARY | 2024-01-22 09:29 | XMS_ITS | Encounter Summary ---
Author Organization [place] Address [address] [place] [address] Care Team Providers Care Private Client Advisor Name Role Phone Carmen Neil DO Primary Care Provider [phone] [place] Mancuso MD Primary Care Provid er None Primary Care Provider Unavailabl Louie Hung MD Primary Care Provider Unav ailable Ana Lilia Delgado PA-C Primary Care Pro vider Ana Lilia Delgado PA-C Unavailable Louie Meadows MD Primary Care Provider +1 -[phone] Physicians, [facility] Unavailable +1 -[phone] Ana Lilia Delgado PA-C Unavailable Physicians, [facility] Unavailable +1 -[phone] Encounter Details Date Type Department Care Team (Late st Contact Info) Description 07/28/2014 MyC Medical Advice [facility] [address] [facility] [address] [place] [address] Lenore Oliver MD [address] [place] [address] Social History Tobacco Use Types Packs/Day Years [...] on filedocumented in this encounter Care Teams Private Client Advisor Relationship Specialty Start Date End Date Carmen Neil DO PCP - General administration professional 11/28/12 12/18/14 [place] Mancuso MD [facility] [place] [address] PCP - General Internal Medicine 12/19/14 12/21/14 None PCP - General 12/22/14 04/14/15 Louie Camacho MD PCP - General administration professional 04/15/15 12/23/21 Ana Lilia Delgado PA-C PCP - General Family Medicine 12/24/21 07/20/22 Louie Meadows MD [address] [place] [address] PCP - General Family Medicine 07/21/22 Ana Lilia Delgado PA-C [facility] [address] [place] [address] Assigned PCP 01/01/22 08/05/22 Physicians, [address] [phone] Assigned PCP 07/20/23 12/16/23 Ana Lilia Delgado PA-C [facility] [address], [facility] 200 [place] [address] Assigned PCP 12/17/23 01/15/24 Physicians, [address] [place] [address] Assigned PCP 01/16/24 documented as of this encounter
--- OUTSIDE RECORDS SUMMARY | 2024-01-22 09:29 | XMS_ITS | Encounter Summary ---
Author Organization [place] Address [address] [place] [address]. [place] [address] Care Team Providers Care Acquisition Manager Name Role Phone Ana Lilia Delgado PA-C Primary Care Pro vider Ana Lilia Delgado PA-C Unavailable Louie Meadows MD Primary Care Provider [phone] [phone] Physicians, [facility] Unavailable [phone] -[phone] Ana Lilia Delgado PA-C Unavailable Physicians, [facility] Unavailable + [phone] Encounter Details Date Type Department Care Team (Latest Contact Info) Description 06/02/2022 MyC Medical Advice [facility] Physicians [address] [place] [address] [address] [place] [address] Ana Lilia Delgado PA-C [facility] [address], [facility] 200 [place], [place] [phone] Benign essential hypertension (Primary Dx) Social History Tobacco Use Types Packs/Day Years [...] suspected to have Coronavirus/COVID-19? No / Unsure 05/13/2022 12:[address]ER documented as of this encounter Plan of Treatment Not on file documented as of this encounter Visit Diagnoses Diagnosis Benign essential hypertension- Primary Essential hypertension, benign documented in this encounter Additional Health Concerns Assessment Noted Time PHQ-9 Depression Total Score: 5 05/13/20 1:[address]ER documented as of this encounter Care Teams Acquisition Manager Relationship Specialty Start Date End Date Ana Lilia Delgado PA-C PCP - General Family Medicine 12/24/21 07/20/22 Louie Meadows MD [address] [place] [address] PCP - General Family Medicine 07/21/22 Ana Lilia Delgado PA-C [facility] [address], [address] [place], [place] [address] Assigned PCP 01/01/22 08/05/22 Physicians, [place] [address] [address] [facility] [address] [place] [address] Assigned PCP 07/20/23 12/16/23 Ana Lilia Delgado PA-C [facility] [address], [address] [place] [address] Assigned PCP 12/17/23 01/15/24 Physicians, [address] [place] [address] Assigned PCP 01/16/24 documented as of this encounter
--- OUTSIDE RECORDS SUMMARY | 2024-01-22 09:29 | XMS_ITS | Encounter Summary ---
Author Organization [place] Address [address] [place] [address] Care Team Providers Care Animal Biologist Name Role Phone None Primary Care Provider Louie Gordillo MD Primary Care Provider Ana Lilia Parra PA-C Primary Care Pro vider Ana Lilia Delgado PA-C Unavailable Louie Meadows MD Primary Care Provider [phone] [phone] Physicians, [facility] Unavailable [phone] Ana Lilia Delgado PA-C Unavailable Physicians, [facility] Unavailable +[phone] Encounter Details Date Type Department Care Team (Late st Contact Info) Description 03/06/2015 MyC Medical Advice [address] [address] Louie Camacho MD NO INFO AVAILABLE 01/17/23 Social History Tobacco Use Types Packs/Day Years [...] on filedocumented in this encounter Care Teams Animal Biologist Relationship Specialty Start Date End Date None PCP - General 12/22/14 04/14/15 Louie Camacho MD PCP - General dermatology physician assistant 04/15/15 12/23/21 Ana Lilia Delgado PA-C PCP - General Family Medicine 12/24/21 07/20/22 Louie Meadows MD [address] [place] [phone] PCP - General Family Medicine 07/21/22 Ana Lilia Delgado PA-C [facility] [address], [address] [place] [address] Assigned PCP 01/01/22 08/05/22 Physicians, [place] [address] [address] [facility] [address] [place] [phone] Assigned PCP 07/20/23 12/16/23 Ana Lilia Delgado PA-C [facility] [address], [facility] 200 [place], [place] [address] Assigned PCP 12/17/23 01/15/24 Physicians, [place] [address] [address] [facility] [address] [place] [phone] Assigned PCP 01/16/24 documented as of this encounter
--- OUTSIDE RECORDS SUMMARY | 2024-01-22 09:29 | XMS_ITS | Encounter Summary ---
Author Organization [place] Address [address] [place] [address] Care Team Providers Care Telephone Cleaner Name Role Phone Louie Meadows MD Primary Care Provider +1 -[phone] Physicians, [place] Family Unavailable +1 -[phone] Reason for Visit * Reason Comments Medication Refill Encounter Details Date Type Department Care Team ([facility] st Contact Info) Description 10/31/2023 Refill [facility] Physicians [address] [phone] Louie Meadows MD [address] [place] [address] [phone] Medication Refill Social History Tobacco Use Types [...] Telephone Encounter - Jessi Grimes CMA - 11/01/2023 1:13 PM CDT Stephy Graham Dwain is requesting a refill of: Refused Prescriptions: Disp Refills labetalol (NORMODYNE) 300 MG tablet [Pharm* Sig: TAKE 1 TABLET BY MOUTH TWICE A DAY Refused By: JESSI GRIMES Reason for Refusal: Patient needs appointment amLODIPine (NORVASC) 10 MG tablet [Pharmac* Sig: TAKE 1 TABLET (10 MG) BY MOUTH DAILY. Refused By: JESSI GRIMES Reason for Refusal: Patient needs appointment Pt due for FASTING CPX or OV documented in this encounter Plan of Treatment Not on file documented as of this encounter Visit Diagnoses Diagnosis Benign essential hypertension Essential hypertension, benign documented in this encounter Additional Health Concerns Assessment Noted Time PHQ-9 Depression Total Score: 7 05/03/20 23 1:21 PM PULMONARY FUNCTION TECHNICIAN documented as of this encounter Care Teams Telephone Cleaner Relationship Specialty Start Date End Date Louie Meadows MD [address] [place] [address] PCP - General Family Medicine 07/21/22 Physicians, [place] [address] [address] [address] [facility] [address] [place] [phone] Assigned PCP 07/20/23 12/16/23 documented as of this encounter
--- OUTSIDE RECORDS SUMMARY | 2024-01-22 09:29 | XMS_ITS | Encounter Summary ---
Author Organization [place] Address [address] [place] [address] Care Team Providers Care Bag Machine Tender Name Role Phone Louie Meadows MD Primary Care Provider [phone] -[phone] Physicians, [facility] Unavailable [phone] -[phone] Reason for Visit * Reason Onset Date Comments Refill Request 11/01/2023 Fluoxetine, Venl afaxine Encounter Details Date Type Department Care Team (Late st Contact Info) Description 11/01/2023 MyC Medical Advice [facility] [address] [place] [phone] Jolene Grimes CMA Refill Request (Fluoxetine, Venlafaxine/) Social History Tobacco Use Types Packs/Day Years [...] encounter Miscellaneous Notes * Telephone Encounter - Blanca Melo CMA - 11/15/2023 5:27 PM CDT Received 90 day medication request. Ana Lilia Delgado is at [facility]. Sent refills back, Pt had seen Ana Lilia for a CPX documented in this encounter Plan of Treatment Not on file documented as of this encounter Visit Diagnoses Not on filedocumented in this encounter Additional Health Concerns Assessment Noted Time PHQ-9 Depression Total Score: 7 05/03/20 23 1:21 PM OIL PUMP STATION OPERATOR CHIEF documented as of this encounter Care Teams Bag Machine Tender Relationship Specialty Start Date End Date Louie Meadows MD [address] [place], [place] [phone] PCP - General Family Medicine 07/21/22 Physicians, [address] [place] [phone] Assigned PCP 07/20/23 12/16/23 documented as of this encounter
--- OUTSIDE RECORDS SUMMARY | 2024-01-22 09:29 | XMS_ITS | Encounter Summary ---
Author Organization [place] Address [address] [place] [address] Care Team Providers Care Booster Pump Operator Name Role Phone Carmen Neil DO Primary Care Provider [phone] [place] Mancuso MD Primary Care Provid er None Primary Care Provider Unavailabl Louie Hung MD Primary Care Provider Unav ailable Ana Lilia Delgado PA-C Primary Care Pro vider Ana Lilia Delgado PA-C Unavailable Louie Meadows MD Primary Care Provider +1 -[phone] Physicians, [facility] Unavailable +1 -[phone] Ana Lilia Delgado PA-C Unavailable Physicians, [facility] Unavailable +1 -[phone] Reason for Visit * Reason Onset Date Comments Refill Request 01/02/2014 Encounter Details Date Type Department Care Team (Late st Contact Info) Description 01/02/2014 MyC Refill [facility] [address] [place] [address] Lenore Oliver MD [address] [address] Refill Request Social History Tobacco Use Types Packs/Day Years [...] on filedocumented in this encounter Care Teams Booster Pump Operator Relationship Specialty Start Date End Date Carmen Neil DO PCP - General hand edger 11/28/12 12/18/14 Cort[place] Mancuso MD [facility] [address] [place], [place] [address] PCP - General Internal Medicine 12/19/14 12/21/14 None PCP - General 12/22/14 04/14/15 Louie Camacho MD PCP - General hand edger 04/15/15 12/23/21 Ana Lilia Delgado PA-C PCP - General Family Medicine 12/24/21 07/20/22 Louie Meadows MD [address] [place] [address] PCP - General Family Medicine 07/21/22 Ana Lilia Delgado PA-C [facility] [address], [facility] 200 [place] [address] Assigned PCP 01/01/22 08/05/22 Physicians, [address] [place] [phone] Assigned PCP 07/20/23 12/16/23 Ana Lilia Delgado PA-C [facility] [address], [facility] 200 [place] [address] Assigned PCP 12/17/23 01/15/24 Physicians, [place] [address] [facility] [address] [place] [phone] Assigned PCP 01/16/24 documented as of this encounter
[2024-01-22 09:36] LABS: Bacteria Urine Moderate; Squamous Epithelial Cell Urine Moderate (None-Few); WBC Urine 0-2 (0-5)
[2024-01-22 10:17] LABS: Basophils Absolute Auto 0.04 K/uL (0.00-0.30); Basophils Percent Auto 0.4 % (0.0-3.0); Eosinophils Percent Auto 1.8 % (0.0-7.0); Hematocrit 41.7 % (33.0-51.0); Hemoglobin* 14.6 gm/dL (12.0-16.0); Immature Granulocytes Abs Auto 0.02 K/uL (0.00-0.30); Immature Granulocytes Pct Auto 0.2 %; Mean Corpuscular HGB Conc 35 gm/dL (32-36); Mean Corpuscular Hemoglobin 31 pg (26-34); Mean Corpuscular Volume 89 fL (80-100); Monocytes Percent Auto 5.4 % (0.0-11.0); Neutrophils Percent Auto 76.2 % (42.0-72.0); Platelet Count* 280 K/uL (140-440); RDW Coefficient of Variation % 12.6 % (11.5-15.5); Red Blood Count 4.69 m/uL (4.00-5.20); White Blood Count* 10.85 K/uL (4.50-11.00)
[2024-01-22 10:21] LABS: Slide Review Reflex No
[2024-01-22 10:29] LABS: Chloride* 102 mmol/L (96-114)
[2024-01-22 10:30] LABS: Potassium* 3.3 mmol/L (3.6-5.1); Sodium* 139 mmol/L (135-149)
[2024-01-22 10:32] LABS: Creatinine* 0.7 mg/dL (0.5-1.5); Est. Creatinine Clearance* 118.99; Estimated Glomerular Filt Rate 114 ml/min
[2024-01-22 10:33] LABS: Anion Gap 10 mEq/L (7-15); Blood Urea Nitrogen* 11 mg/dL (5-24); Calcium* 9.5 mg/dL (8.4-10.6); Carbon Dioxide* 27 mmol/L (20-32); Glucose* 120 mg/dL (60-115)
== END 2024-01-22 11:08 | disposition home or self-care (01) ==
PROVIDERS: Emergency Provider Emergency Medicine Emergency Medical Services
DX: M54.50 Low back pain, unspecified (principal)
CPT/HCPCS: 36415; 80048; 81001; 85025; 87086; 99283; 99284